=== PATIENT | female | born 1995 | race Caucasian/White ===

== ENCOUNTER 2021-06-17 20:20 | Emergency (ER) | payer OTHER ==
[~2021-06-17] VITALS: Ht 154.9 cm; Wt 59.9 kg
[2021-06-17 20:46] LABS: URINE BILIRUBIN NEGATIVE (Negative); URINE BLOOD NEGATIVE (Negative); URINE COLOR YELLOW; URINE GLUCOSE-RANDOM NEGATIVE (Negative); URINE KETONES NEGATIVE (Negative); URINE LEUKOCYTES-REFLEX 1+ (Negative); URINE NITRITE-REFLEX NEGATIVE (Negative); URINE PROTEIN NEGATIVE (Negative); URINE SPECIFIC GRAVITY >= 1.030 (1.005-1.030); URINE UROBILINOGEN 0.2 E.U./dl (0.2-1.0)
[2021-06-17 20:48] LABS: URINE CLARITY HAZY
[2021-06-17 20:50] LABS: SQUAMOUS >10 Many /LPF (0-3); URINE RBC None Seen /HPF (0-2); URINE WBC-REFLEX 0-5 Rare /HPF (0-5)
[2021-06-17 20:51] LABS: CASTS None Seen /LPF (None Seen); CRYSTALS None Seen /LPF (None Seen)
[2021-06-17 21:14] LABS: ABSOLUTE LYMPHOCYTES 2.1 thou/uL (0.8-5.3); ABSOLUTE MONOCYTES 0.5 thou/uL (0.0-1.2); ABSOLUTE NEUTROPHILS 5.2 thou/uL (1.6-8.1); BASOPHILS 0.6 %; EOSINOPHILS 0.5 %; HEMATOCRIT 35.6 % (37.0-47.0); LYMPHOCYTES 27.1 %; MCH 26.5 pg (26.0-34.0); MCHC 33.7 g/dL (28.0-37.0); MCV 78.7 fL (80.0-100.0); MONOCYTES 6.2 %; MPV 8.9 fl. (7.2-11.1); NUCLEATED RBCS 0 /100WBC; PLATELET COUNT* 241 thou/uL (150-400); POLYS 65.6 %; RBC 4.52 mil/uL (4.20-5.00); RDW-CV 13.7 % (10.5-14.5); WBC 7.9 thou/uL (4.0-11.0)
[2021-06-17 21:18] LABS: CALCIUM 8.6 mg/dL (8.5-10.1); CREATININE 0.9 mg/dL (0.6-1.3)
[2021-06-17 22:57] VITALS: BP 104/71
== END 2021-06-17 22:58 | disposition home or self-care (01) ==
LOC: EDBD 20:20 → M.ERS 20:20
PROVIDERS: Emergency Medicine
DX: O20.0 Threatened abortion (principal); Z88.1 Allergy status to other antibiotic agents; Z3A.00 Weeks of gestation of pregnancy not specified